=== PATIENT | female | born 1935 | race Caucasian/White ===

== ENCOUNTER 2017-07-12 16:17 | Emergency (ER) | payer OTHER ==
[~2017-07-12] VITALS: Ht 149.9 cm; Wt 57.2 kg
[2017-07-12 16:24] VITALS: BP_SYST 153
[2017-07-12 17:56] LABS: ANION GAP 6 (5-15); CALCIUM 9.6 mg/dL (8.4-11.0); CHLORIDE 103 mmol/L (98-107); CREATININE 0.75 mg/dL (0.55-1.30); GLUCOSE 114 mg/dL (70-99); POTASSIUM 3.4 mmol/L (3.5-5.1); SODIUM SERUM 135 mmol/L (136-145); UREA NITROGEN, BLOOD 24 mg/dL (8-21)
[2017-07-12 18:01] LABS: ALANINE AMINOTRANSFERASE 69 U/L (12-78); ALBUMIN 3.3 g/dL (3.4-4.8); ASPARTATE AMINOTRANSFERASE 44 U/L (10-37); TOTAL BILIRUBIN 1.5 mg/dL (0.0-1.0)
[2017-07-12 18:17] VITALS: BP_SYST 145
== END 2017-07-12 18:17 | disposition home or self-care (01) ==
LOC: SED 16:17
DX: S30.0XXA Contusion of lower back and pelvis, initial encounter (principal); Z86.73 Personal history of transient ischemic attack (TIA), and cerebral infarction without residual deficits; W01.0XXA Fall on same level from slipping, tripping and stumbling without subsequent striking against object, initial encounter; Y93.89 Activity, other specified; Y92.091 Bathroom in other non-institutional residence as the place of occurrence of the external cause; Y99.8 Other external cause status
CPT/HCPCS: 36415; 70450-TC; 80053; 99285

== ENCOUNTER 2019-07-28 | Inpatient (IN) | payer OTHER ==
[~2019-07-28] VITALS: Ht 149.9 cm; Wt 50.8 kg
[2019-07-28] VITALS (7 sets, daily range): BP systolic 95–120
[2019-07-28] MEDS ORDERED: cefTRIAXone 1 GM IVPB PREMIX 50 ML IV ONE (00:30)
[2019-07-28 01:04] LABS: BASOPHILS % (AUTO) 0.4 % (0.0-2.0); EOSINOPHILS % (AUTO) 0.5 % (0.0-4.0); HEMATOCRIT 40.4 % (36-48); LYMPHOCYTES # (AUTO) 1.7 K/uL (1.0-5.5); LYMPHOCYTES % (AUTO) 22.9 % (20.5-51.5); MEAN CORPUSCULAR HEMOGLOBIN 28 pg (27-31); MEAN CORPUSCULAR HGB CONC 32 % (32-36); MEAN CORPUSCULAR VOLUME 89 fL (79.0-98.0); MONOCYTES # (AUTO) 1.2 K/uL (0.0-1.0); MONOCYTES % (AUTO) 16.1 % (1.7-9.3); NEUTROPHILS # (AUTO) 4.3 K/uL (1.8-7.7); NEUTROPHILS % (AUTO) 60.1 % (40.0-70.0); PLATELET COUNT (AUTO) 122 K/uL (130-430); RED BLOOD CELL COUNT(AUTO) 4.56 MIL/uL (4.2-6.2); RED CELL DISTRIBUTION WIDTH 18.9 % (9.0-15.0); WHITE BLOOD COUNT (AUTO) 7.2 K/uL (4.8-10.8)
[2019-07-28] MEDS ORDERED: FURO40SO5 PO (01:06)
[2019-07-28] MEDS ORDERED: BISA5TAB10 PR (01:06)
[2019-07-28] MEDS ORDERED: APIX2.5T PO (01:06)
[2019-07-28] MEDS ORDERED: FLEETMO RC (01:06)
[2019-07-28] MEDS ORDERED: METO1TAB38 PO (01:06)
[2019-07-28] MEDS ORDERED: POTA20TA83 PO (01:06)
[2019-07-28] MEDS ORDERED: MOM PO (01:06)
[2019-07-28] MEDS ORDERED: LIP20 PO (01:06)
[2019-07-28] MEDS ORDERED: MEMA10TA PO (01:06)
[2019-07-28] MEDS ORDERED: IPRA3AMP9 INH (01:06)
[2019-07-28] MEDS ORDERED: MAGN400T10 PO (01:06)
[2019-07-28 01:17] LABS: ANION GAP 9 (5-15); CHLORIDE 105 mmol/L (98-107); CREATININE 1.05 mg/dL (0.55-1.30); GLUCOSE 104 mg/dL (70-99); SODIUM SERUM 141 mmol/L (136-145); UREA NITROGEN, BLOOD 20 mg/dL (8-21)
[2019-07-28 01:22] LABS: ALANINE AMINOTRANSFERASE 16 U/L (12-78); ALBUMIN 2.3 g/dL (3.4-4.8); ASPARTATE AMINOTRANSFERASE 26 U/L (10-37); TOTAL BILIRUBIN 1.3 mg/dL (0.0-1.0)
[2019-07-28 01:28] LABS: BILIRUBIN,URINE NEGATIVE (NEGATIVE); BLOOD, URINE NEGATIVE (NEGATIVE); CLARITY/URINE CLEAR (CLEAR); COLOR,URINE YELLOW (YELLOW); GLUCOSE,URINE NEGATIVE (NEGATIVE); KETONES,URINE NEGATIVE (NEGATIVE); LEUKOCYTE ESTERASE ,URINE TRACE (NEGATIVE); NITRITE, URINE NEGATIVE (NEGATIVE); PROTEIN URINE 1+ (NEGATIVE)
[2019-07-28 01:36] LABS: BACTERIA,URINE MODERATE /HPF (None Seen)
[2019-07-28] MEDS ORDERED: HYDROcodone/ACETAMIN 5-325 MG TAB (NORCO/ VICODIN) PO PRN (04:45)
[2019-07-28] MEDS ORDERED: ACETAMINOPHEN 325 MG TABLET PO PRN (04:45)
[2019-07-28] MEDS: cefTRIAXone 1 GM IVPB PREMIX 50 ML IV SCH ×3 (04:45→21:17)
[2019-07-28] MEDS ORDERED: IPRATROPIUM/ALBUTEROL SULFATE 3 ML AMPUL.NEB (DUONEB) INH PRN (04:45)
[2019-07-28] MEDS ORDERED: BISACODYL 5 MG TABLET.DR (DULCOLAX) PO PRN (04:45)
[2019-07-28] MEDS ORDERED: MILK OF MAGNESIA 30 ML UDC PO SCH (04:45)
[2019-07-28] MEDS ORDERED: MINERAL OIL 133 ML ENEMA RC PRN (04:45)
[2019-07-28] MEDS: NORMAL SALINE 5 ML DISP.SYRIN IVF SCH ×3 (06:12→21:17)
[2019-07-28] MEDS: METOPROLOL SUCCINATE 50 MG TAB.SR.24H (TOPROL XL) PO SCH (08:17)
[2019-07-28] MEDS: MAGNESIUM OXIDE 400 MG TABLET PO SCH ×2 (08:39→08:53)
[2019-07-28] MEDS: MEMANTINE HCL 5 MG TABLET PO SCH ×2 (08:39→21:26)
[2019-07-28] MEDS: ASPIRIN 81 MG TAB.CHEW PO SCH ×2 (08:39→08:53)
[2019-07-28] MEDS: MILK OF MAGNESIA 30 ML UDC PO SCH (08:39)
[2019-07-28] MEDS: FUROSEMIDE 40 MG TABLET PO SCH ×2 (08:39→21:00)
[2019-07-28] MEDS: APIXABAN 2.5 MG TABLET PO SCH ×2 (08:41→21:26)
[2019-07-28 10:06] LABS: HEMATOCRIT 43.2 % (36-48); HEMOGLOBIN 13.5 g/dL (12.0-16.0); MEAN CORPUSCULAR HEMOGLOBIN 28 pg (27-31); MEAN CORPUSCULAR HGB CONC 31 % (32-36); MEAN CORPUSCULAR VOLUME 90 fL (79.0-98.0); PLATELET COUNT (AUTO) 98 K/uL (130-430); RED BLOOD CELL COUNT(AUTO) 4.81 MIL/uL (4.2-6.2); RED CELL DISTRIBUTION WIDTH 19.4 % (9.0-15.0); WHITE BLOOD COUNT (AUTO) 5.5 K/uL (4.8-10.8)
[2019-07-28 11:23] LABS: ALANINE AMINOTRANSFERASE 13 U/L (12-78); ALBUMIN 2.2 g/dL (3.4-4.8); ANION GAP 6 (5-15); ASPARTATE AMINOTRANSFERASE 24 U/L (10-37); CALCIUM 9.2 mg/dL (8.4-11.0); CHLORIDE 105 mmol/L (98-107); CREATININE 0.92 mg/dL (0.55-1.30); GLUCOSE 93 mg/dL (70-99); POTASSIUM 3.9 mmol/L (3.5-5.1); SODIUM SERUM 140 mmol/L (136-145); TOTAL BILIRUBIN 1.2 mg/dL (0.0-1.0); UREA NITROGEN, BLOOD 19 mg/dL (8-21)
[2019-07-28 11:37] LABS: CHOLESTEROL 76 mg/dL (<200); HDL CHOLESTEROL 23 mg/dL (>55); LDL CHOLESTEROL 48 mg/dL (<100); TRIGLYCERIDES 52 mg/dL (30-150)
[2019-07-28 12:49] LABS: BASOPHILS % (MANUAL) 0 % (0-2); EOSINOPHILS % (MANUAL) 0 % (0-7); LYMPHOCYTES % (MANUAL) 22 % (20-46); MONOCYTES % (MANUAL) 16 % (0-11)
[2019-07-28] MEDS: ATORVASTATIN 20 MG TABLET PO SCH (21:26)
[2019-07-29 01:22] VITALS: BP_SYST 102
[2019-07-29] MEDS: NORMAL SALINE 5 ML DISP.SYRIN IVF SCH ×3 (05:02→21:44)
[2019-07-29 06:42] LABS: BASOPHILS % (AUTO) 0.5 % (0.0-2.0); EOSINOPHILS # (AUTO) 0.1 K/uL (0.0-0.4); EOSINOPHILS % (AUTO) 1.8 % (0.0-4.0); HEMATOCRIT 41.4 % (36-48); HEMOGLOBIN 13.1 g/dL (12.0-16.0); LYMPHOCYTES # (AUTO) 1.5 K/uL (1.0-5.5); LYMPHOCYTES % (AUTO) 30.1 % (20.5-51.5); MEAN CORPUSCULAR HEMOGLOBIN 28 pg (27-31); MEAN CORPUSCULAR HGB CONC 32 % (32-36); MEAN CORPUSCULAR VOLUME 89 fL (79.0-98.0); MONOCYTES # (AUTO) 0.7 K/uL (0.0-1.0); MONOCYTES % (AUTO) 14.6 % (1.7-9.3); NEUTROPHILS # (AUTO) 2.6 K/uL (1.8-7.7); PLATELET COUNT (AUTO) 116 K/uL (130-430); RED BLOOD CELL COUNT(AUTO) 4.66 MIL/uL (4.2-6.2); RED CELL DISTRIBUTION WIDTH 19.1 % (9.0-15.0); WHITE BLOOD COUNT (AUTO) 4.9 K/uL (4.8-10.8)
[2019-07-29 07:04] LABS: ALANINE AMINOTRANSFERASE 13 U/L (12-78); ALBUMIN 2.1 g/dL (3.4-4.8); ANION GAP 8 (5-15); ASPARTATE AMINOTRANSFERASE 24 U/L (10-37); CALCIUM 9.1 mg/dL (8.4-11.0); CHLORIDE 104 mmol/L (98-107); GLUCOSE 72 mg/dL (70-99); SODIUM SERUM 143 mmol/L (136-145); TOTAL BILIRUBIN 1.2 mg/dL (0.0-1.0); UREA NITROGEN, BLOOD 16 mg/dL (8-21)
[2019-07-29 08:52] VITALS: BP_SYST 122
[2019-07-29] MEDS: cefTRIAXone 1 GM IVPB PREMIX 50 ML IV SCH ×2 (09:08→21:44)
[2019-07-29 12:13] VITALS: BP_SYST 121
[2019-07-29] MEDS: MILK OF MAGNESIA 30 ML UDC PO SCH (12:22)
[2019-07-29] MEDS: ASPIRIN 81 MG TAB.CHEW PO SCH (12:22)
[2019-07-29] MEDS: MAGNESIUM OXIDE 400 MG TABLET PO SCH (12:22)
[2019-07-29] MEDS: METOPROLOL SUCCINATE 50 MG TAB.SR.24H (TOPROL XL) PO SCH (12:22)
[2019-07-29] MEDS: MEMANTINE HCL 5 MG TABLET PO SCH ×2 (12:23→20:13)
[2019-07-29] MEDS: FUROSEMIDE 40 MG TABLET PO SCH ×2 (12:23→20:13)
[2019-07-29] MEDS: APIXABAN 2.5 MG TABLET PO SCH ×2 (12:26→20:12)
[2019-07-29 16:27] VITALS: BP_SYST 115
[2019-07-29 20:00] VITALS: BP_SYST 125
[2019-07-29] MEDS: ATORVASTATIN 20 MG TABLET PO SCH (20:12)
[2019-07-29 22:49] VITALS: BP_SYST 114
[2019-07-30] MEDS: NORMAL SALINE 5 ML DISP.SYRIN IVF SCH ×3 (05:08→21:40)
[2019-07-30 08:00] VITALS: BP_SYST 138
[2019-07-30] MEDS: MILK OF MAGNESIA 30 ML UDC PO SCH (08:12)
[2019-07-30] MEDS: MAGNESIUM OXIDE 400 MG TABLET PO SCH (08:13)
[2019-07-30] MEDS: ASPIRIN 81 MG TAB.CHEW PO SCH (08:13)
[2019-07-30] MEDS: METOPROLOL SUCCINATE 50 MG TAB.SR.24H (TOPROL XL) PO SCH (08:13)
[2019-07-30] MEDS: FUROSEMIDE 40 MG TABLET PO SCH ×2 (08:14→20:26)
[2019-07-30] MEDS: MEMANTINE HCL 5 MG TABLET PO SCH ×2 (08:14→20:25)
[2019-07-30] MEDS: cefTRIAXone 1 GM IVPB PREMIX 50 ML IV SCH ×2 (08:15→20:26)
[2019-07-30] MEDS: APIXABAN 2.5 MG TABLET PO SCH ×2 (08:15→20:30)
[2019-07-30 12:06] LABS: ANION GAP 6 (5-15); CHLORIDE 100 mmol/L (98-107); CREATININE 0.92 mg/dL (0.55-1.30); GLUCOSE 100 mg/dL (70-99); SODIUM SERUM 140 mmol/L (136-145); UREA NITROGEN, BLOOD 15 mg/dL (8-21)
[2019-07-30 12:13] LABS: POTASSIUM 2.6 mmol/L (3.5-5.1)
[2019-07-30] MEDS ORDERED: POTASSIUM CHLORIDE 60 MEQ in NS 500 ML IV ONE (12:30)
[2019-07-30] MEDS ORDERED: POTASSIUM CHLORIDE 20 MEQ TAB.PRT.SR PO ONE (12:30)
[2019-07-30 12:47] VITALS: BP_SYST 103
[2019-07-30 16:35] VITALS: BP_SYST 110
[2019-07-30 20:15] VITALS: BP_SYST 95
[2019-07-30] MEDS: MIRTAZAPINE 15 MG TABLET PO SCH (20:25)
[2019-07-30] MEDS: ATORVASTATIN 20 MG TABLET PO SCH (20:25)
[2019-07-30] MEDS: EMOLLIENT COMBINATION NO.73 78 GM CREAM..G. TP SCH (20:34)
[2019-07-31 00:04] VITALS: BP_SYST 97
[2019-07-31] MEDS: NORMAL SALINE 5 ML DISP.SYRIN IVF SCH ×3 (05:38→22:28)
[2019-07-31 08:00] VITALS: BP_SYST 101
[2019-07-31] MEDS: MILK OF MAGNESIA 30 ML UDC PO SCH (08:52)
[2019-07-31] MEDS: cefTRIAXone 1 GM IVPB PREMIX 50 ML IV SCH ×2 (08:52→20:28)
[2019-07-31] MEDS: ASPIRIN 81 MG TAB.CHEW PO SCH (08:53)
[2019-07-31] MEDS: MEMANTINE HCL 5 MG TABLET PO SCH ×2 (08:53→21:59)
[2019-07-31] MEDS: FUROSEMIDE 40 MG TABLET PO SCH ×2 (08:53→21:00)
[2019-07-31] MEDS: MAGNESIUM OXIDE 400 MG TABLET PO SCH (08:53)
[2019-07-31] MEDS: METOPROLOL SUCCINATE 50 MG TAB.SR.24H (TOPROL XL) PO SCH (08:54)
[2019-07-31] MEDS: APIXABAN 2.5 MG TABLET PO SCH ×2 (08:55→22:03)
[2019-07-31] MEDS: EMOLLIENT COMBINATION NO.73 78 GM CREAM..G. TP SCH ×3 (09:00→21:59)
[2019-07-31 10:43] VITALS: BP_SYST 101
[2019-07-31 11:20] LABS: ANION GAP 4 (5-15); CALCIUM 8.7 mg/dL (8.4-11.0); CHLORIDE 103 mmol/L (98-107); CREATININE 1.03 mg/dL (0.55-1.30); GLUCOSE 130 mg/dL (70-99); POTASSIUM 4.3 mmol/L (3.5-5.1); SODIUM SERUM 138 mmol/L (136-145); UREA NITROGEN, BLOOD 30 mg/dL (8-21)
[2019-07-31 12:20] VITALS: BP_SYST 99
[2019-07-31 16:23] VITALS: BP_SYST 98
[2019-07-31 21:15] VITALS: BP_SYST 96
[2019-07-31] MEDS: ATORVASTATIN 20 MG TABLET PO SCH (21:58)
[2019-07-31] MEDS: MIRTAZAPINE 15 MG TABLET PO SCH (21:58)
[2019-08-01] MEDS: NORMAL SALINE 5 ML DISP.SYRIN IVF SCH ×3 (06:09→22:00)
[2019-08-01 08:08] VITALS: BP_SYST 106
[2019-08-01] MEDS: cefTRIAXone 1 GM IVPB PREMIX 50 ML IV SCH ×2 (08:30→21:00)
[2019-08-01] MEDS: ASPIRIN 81 MG TAB.CHEW PO SCH (08:31)
[2019-08-01] MEDS: MAGNESIUM OXIDE 400 MG TABLET PO SCH (08:31)
[2019-08-01] MEDS: MEMANTINE HCL 5 MG TABLET PO SCH ×2 (08:31→22:09)
[2019-08-01] MEDS: MILK OF MAGNESIA 30 ML UDC PO SCH (08:31)
[2019-08-01] MEDS: METOPROLOL SUCCINATE 50 MG TAB.SR.24H (TOPROL XL) PO SCH (08:32)
[2019-08-01] MEDS: FUROSEMIDE 40 MG TABLET PO SCH ×2 (08:32→21:00)
[2019-08-01] MEDS: APIXABAN 2.5 MG TABLET PO SCH ×2 (08:33→22:09)
[2019-08-01] MEDS: EMOLLIENT COMBINATION NO.73 78 GM CREAM..G. TP SCH ×2 (08:33→21:00)
[2019-08-01 12:33] VITALS: BP_SYST 100
[2019-08-01 13:43] VITALS: BP_SYST 107
[2019-08-01 16:36] VITALS: BP_SYST 107
[2019-08-01 22:03] VITALS: BP_SYST 96
[2019-08-01] MEDS: ATORVASTATIN 20 MG TABLET PO SCH (22:09)
[2019-08-01] MEDS: MIRTAZAPINE 15 MG TABLET PO SCH (22:09)
== END 2019-08-01 23:13 | DRG 280 ==
LOC: SED → STU 01:49
PROVIDERS: ADMIT Internal Medicine Hospice and Palliative Medicine; ATTEND Internal Medicine Hospice and Palliative Medicine
DX: I21.A1 Myocardial infarction type 2 (principal); E43 Unspecified severe protein-calorie malnutrition; I50.23 Acute on chronic systolic (congestive) heart failure; N39.0 Urinary tract infection, site not specified; I48.20 Chronic atrial fibrillation, unspecified; I11.0 Hypertensive heart disease with heart failure; K56.41 Fecal impaction; F03.90 Unspecified dementia, unspecified severity, without behavioral disturbance, psychotic disturbance, mood disturbance, and anxiety; E78.5 Hyperlipidemia, unspecified; R62.7 Adult failure to thrive; Z68.22 Body mass index [BMI] 22.0-22.9, adult; Z79.899 Other long term (current) drug therapy; Z86.73 Personal history of transient ischemic attack (TIA), and cerebral infarction without residual deficits; Z82.49 Family history of ischemic heart disease and other diseases of the circulatory system; Z79.01 Long term (current) use of anticoagulants
CPT/HCPCS: 36415; 71045; 80048; 80053; 80061; 81000-TC; 83605; 84484; 85007; 85025; 85027; 87040-TC; 87081; 87086; 93005; 93306; 96365; 99285; G0378; J0696; J3480; J7040; J7060